=== PATIENT | female | born 1995 | race Caucasian/White ===

== ENCOUNTER 2020-01-29 20:16 | Emergency (ER) | payer MEDICAID ==
[~2020-01-29] VITALS: Ht 167.6 cm; Wt 56.7 kg
[2020-01-29 20:23] VITALS: BP 123/70
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
[2020-01-29] MEDS ORDERED: IBUPROFEN 600 MG TABLET PO ONE ×2 (20:56→21:00)
[2020-01-29] MEDS ORDERED: ACETAMINOPHEN ES 500 MG TABLET ONE (20:56)
[2020-01-29] MEDS ORDERED: ACETAMINOPHEN ES 500 MG TABLET PO ONE (21:00)
--- NOTE | 2020-01-29 21:11 | NUR ---
SENT TO CT
--- NOTE | 2020-01-29 21:54 | NUR ---
Patient discharged to home in stable condition. Written and verbal after care instructions given. Patient verbalizes understanding of instruction.
== END 2020-01-29 21:54 | disposition home or self-care (01) ==
LOC: ER 20:24
DX: S80.01XA Contusion of right knee, initial encounter (principal); S80.811A Abrasion, right lower leg, initial encounter; M54.2 Cervicalgia; M54.6 Pain in thoracic spine; V29.49XA Motorcycle driver injured in collision with other motor vehicles in traffic accident, initial encounter; Y93.89 Activity, other specified; Y92.488 Other paved roadways as the place of occurrence of the external cause; Y99.8 Other external cause status
CPT/HCPCS: 71045-TC; 72050-TC; 73564-TC; 73590-TC